=== PATIENT | male | born 1930 | race Caucasian/White ===

== ENCOUNTER → 2017-04-13 | Outpatient (CLI) | payer OTHER, BC | LOC: BHFA 09:15 | PROVIDERS: ATTEND Internal Medicine Cardiovascular Disease | DX: I34.0 Nonrheumatic mitral (valve) insufficiency (principal); I77.810 Thoracic aortic ectasia ==

== ENCOUNTER → 2017-07-23 | Outpatient (CLI) | payer OTHER, BC | LOC: CIMAGING 12:18 | PROVIDERS: ATTEND Internal Medicine | DX: M79.89 Other specified soft tissue disorders (principal) | CPT/HCPCS: 93971-PO ==

== ENCOUNTER 2017-08-03 10:32 | Observation (INO) | payer OTHER, BC ==
--- NOTE | 2017-08-03 10:45 | CPEKG ---
Heart Rate: 80 RR Interval: 750 P-R Interval: 215 QRSD Interval: 134 QT Interval: 404 QTC Interval: 466 P Salem: 65 QRS Salem: -59 T Wave Salem: 86 EKG Severity - ABNORMAL ECG - EKG Impression: SINUS RHYTHM EKG Impression: LEFT BUNDLE BRANCH BLOCK Electronically Signed By: Edward Larkin 04-Aug-2017 15:36:08
[2017-08-03 10:49] LABS: % IMMATURE GRANULYOCYTES 0.4 % (0.0-1.1); ABSOLUTE IMMATURE GRANULOCYTES 0.02 10^3/uL (0.00-0.10); ADD DIFF? NO; ADD MORPH? NO; ADD SCAN? NO; ATYPICAL LYMPHOCYTE FLAG 0 (0-99); FRAGMENT RBC FLAG 0 (0-99); HEMATOCRIT 44.5 % (40.0-51.0); HEMOGLOBIN 15.7 g/dL (13.7-17.5); LEFT SHIFT FLG 0 (0-99); LIPEMIA HEMOLYSIS FLAG 90 (0-99); MEAN CELL HEMOGLOBIN 32.4 pg (27.9-34.1); MEAN CELL HEMOGLOBIN CONCENTR. 35.3 g/dL (32.4-36.7); MEAN CELL VOLUME 91.9 fL (81.5-99.8); MEAN PLATELET VOLUME 8.8 fL (8.7-11.7); PLATELET CLUMPS FLAG 0 (0-99); PLATELET COUNT 189 10^3/uL (150-400); RED BLOOD CELL COUNT 4.84 10^6/uL (4.40-6.38); RED CELL DISTRIBUTION WIDTH 13.6 % (11.5-15.2)
[2017-08-03 11:03] LABS: APTT 25.7 SEC (23.0-38.0); INR 0.96 (0.83-1.16); PROTIME(PATIENT) 12.5 SEC (12.0-15.0)
--- NOTE | 2017-08-03 11:10 | EDPHY ---
H & P Stated Complaint: 1 hr ago c/o rt sided teeth tingling and some speech issues Time Seen by Provider: 08/03/17 10:41 HPI/ROS: This patient is brought in by private vehicle by his after onset of subtle none stroke symptoms at 9:30 a.m. this morning. He explains that while eating he noticed a feeling of slight numbness and paresthesias in his gums on the right side an in his right face. Around the same time he noticed subtle dysarthria feeling like he was having difficulty articulating his words. He reports no aphasia; he had-had no difficulty finding words just difficulty enunciating. His reports that she noted subtle right upper lip droop at the same time. The patient reports persistent subtle feeling dysarthria. He noticed no other focal neuro symptoms and he reports he felt well prior to the onset of symptoms. ROS: No recent fevers or chills. No significant fatigue. No other constitutional symptoms HEENT: No recent URI symptoms. No sore throat or other. No change in hearing. No visual changes. Neuro: No headache. No focal weakness in his arms or legs. No recent head injuries. Pulmonary: No shortness of breath. No cough. Cardiovascular: No chest pain or heart palpitations. No lightheadedness. No lower extremity swelling. GI: No abdominal pain nausea or vomiting. : No symptoms Integumentary: No skin rash Endocrine: No complaints Psychiatric: No acute complaints Complete review of symptoms is otherwise negative. Source: Patient Exam Limitations: No limitations - Personal History Current Tetanus Diphtheria and Acellular Pertussis (TDAP): Yes - Medical/Surgical History PMH: Hypertension Mitral valve regurgitation Known left bundle branch block Dyslipidemia Hx Asthma: No Hx Chronic Respiratory Disease: No Hx Diabetes: No Hx Cardiac Disease: Yes Hx Renal Disease: No Hx Cirrhosis: No Hx Alcoholism: No Hx HIV/AIDS: No Hx Splenectomy or Spleen Trauma: No Other PMH: LAZER TURP 3 WEEKS AGO. HTN. LT HIP. TONSILS - Family History Significant Family History: No pertinent family hx - Social History Smoking Status: Former smoker Alcohol Use: Rarely Drug Use: None Additional Social History: Here with his many years. 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 HEENT: Is no external evidence of trauma on exam. Eyes: Pupils are equal and reactive to light. Extraocular motions are intact. Optic fundi: Clear with no papilledema or hemorrhage. Nose atraumatic. Ears: Clear bilaterally with no hemotympanum. Oropharynx: No dental trauma or malocclusion. No intraoral lacerations. Eyes: Pupils are equal and reactive to light. Extraocular motions are intact. Optic fundi: Clear with no papilledema or hemorrhage. Lungs: Clear to auscultation bilaterally Neck: Supple no meningismus. Cardiac: Regular rate and rhythm with 3/6 holosystolic murmur. No JVD. No carotid bruits are appreciated. No peripheral edema. Abdomen: Soft nontender no organomegaly Neuro: GCS of 15. Cranial nerves II through XII intact with the exception of a slight right upper lip droop when he relaxes. Cerebellar exam is normal as judged by symmetric rapid hand movements bilaterally. No pronator drift. He does seem to have very subtle dysarthria. His initial NIH stroke scale is 2 for lip droop and subtle dysarthria. Visual confrontational testing reveals no visual field deficits. Initial differential diagnosis: Ischemic stroke, hemorrhagic stroke, TIA, metabolic disarray, complex migraine, intracranial lesion Constitutional: Initial Vital Signs Temperature (C) 36.6 C 08/03/17 10:39 Heart Rate 82 08/03/17 10:39 Respiratory Rate 18 08/03/17 10:39 Blood Pressure 171/95 H 08/03/17 10:39 O2 Sat (%) 95 08/03/17 10:39 O2 Delivery Mode Nasal Cannula O2 (L/minute) 2 Allergies/Adverse Reactions: No Known Allergies Allergy (Unverified 01/28/14 09:52) Home Medications: Medication Instructions Recorded Ascorbic Acid [Vitamin C 500 mg 500 mg PO DAILY 02/09/13 (OTC)] Aspirin [Aspirin 81mg (OTC)] 81 mg PO DAILY 02/09/13 Atorvastatin Calcium [Lipitor 10 10 mg PO DAILY 02/09/13 mg (RX)] Calcium Carb W/Vit D [Calcium Carb 500 mg PO DAILY 02/09/13 W/Vit D 500/200 (OTC)] Cholecalciferol (Vitamin D3) 1,000 unit PO .2XWEEK 02/09/13 [Vitamin D-3] Hydrochlorothiazide 25 mg PO DAILY 02/09/13 [Hydrochlorothiazide 25 MG (RX)] Lisinopril [Zestril 20 mg (RX)] 20 mg PO DAILY 02/09/13 Lutein 20 mg PO DAILY 02/09/13 Multivitamins [Tab-A-Sarah] 1 each PO DAILY 02/09/13 [place]-3 Fatty Acids/Fish Oil [Fish 1 each PO DAILY 02/09/13 Oil 1,000 mg Capsule] Pharmacy Completed 02/0902/09/13 Selenium [Selenium 50mcg] 50 mcg PO DAILY 02/09/13 Tamsulosin HCl [Flomax 0.4 MG (RX)] 0.4 mg PO DAILY8 02/09/13 Zinc Gluconate [Zinc Chelated 50mg 25 mg PO DAILY 02/09/13 (OTC)] Medical Decision Making - Diagnostics EKG Interpretation: 12 lead EKG performed shortly after arrival at 10:41 a.m. indication struck symptoms rule out dysrhythmia or other Sinus rhythm at 80 Intervals: P R of 215, QRS of 134, QTC of 466 Strum: P of 65, QRS of-59, T of 86 ST segments: Normal throughout Overall assessment sinus rhythm with left bundle branch block Imaging Results: Imaging Impressions Head CT 08/03/17 10:48 Impression: Nothing acute identified. Final concordant results called to Dr. Vazquez at 11:04 AM. General information for patients regarding this examination can be found at [email or web address] If you have questions or comments about this report, please contact me at (hospital) or [phone] (cell). CT brain without contrast reveals old lacune in the basal ganglia, no evidence of acute hemorrhage and no evidence of acute cortical stroke yet. I reviewed this CT and I spoke with Dr. Rios-radiologist about the official read. I spoke with Dr. Schroeder regarding his CT angio head and neck-some tortuous arterial vessels but no significant stenosis in the carotids or elsewhere and no evidence of thrombosis or dissection. Imaging: Discussed imaging studies w/ crew caller Radiologist ED Course/Re-evaluation: IV, monitor, stroke alert initiated. Patient taken room 1. Contacted [facility] Dr. Chaidez, Nuerologist patched -in via telemedicine and evaluated the patient after my initial stroke eval & consult via phone. Given that the patient's symptoms or so minimal and that he seems to be improving in terms of his subtle dysarthria per his Dr. Streeter I feel that there is a is insufficient benefit to warrant thrombo lytic use in this patient. Patient his for comfortable with this plan. Will treat him with 81 mg of aspirin and proceed with further workup to include CT angio head and neck. He will also warrant MRI with contrast of his brain but there are no acute openings an MRI here at this facility so will proceed for his jobs admission to [facility] to Dr. arauz see me who accepts the patient for transfer to the neuro floor where he will have his MRI of the brain. 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 We ruled out intracranial bleed and no evidence of significant metabolic disarray or other complicating factors at this time. His left bundle branch block is longstanding and not think he is having acute cardiac ischemia. - Data Points Laboratory Results: Laboratory Results 08/03/17 10:45 08/03/17 10:45 08/03/17 08/03/17 08/03/17 10:56 10:45 10:45 WBC RBC Hgb Hct MCV MCH MCHC RDW Plt Count MPV Neut % (Auto) Lymph % (Auto) [place] % (Auto) Eos % (Auto) Baso % (Auto) Nucleat RBC Rel Count Absolute Neuts (auto) Absolute Lymphs (auto) Absolute Monos (auto) Absolute Eos (auto) Absolute Basos (auto) Absolute Nucleated RBC Immature Gran % Immature Gran # PT 12.5 SEC SEC (12.0-15.0) INR 0.96 (0.83-1.16) APTT 25.7 SEC SEC (23.0-38.0) Sodium 144 mEq/L mEq/L (134-144) Potassium 4.4 mEq/L mEq/L (3.5-5.2) Chloride 107 mEq/L mEq/L (97-110) Carbon Dioxide 22 mEq/l mEq/l (22-31) Anion Gap 15 mEq/L mEq/L (8-16) BUN 29 mg/dL H mg/dL (7-23) Creatinine 1.1 mg/dL mg/dL (0.7-1.3) Estimated GFR > 60 Glucose 106 mg/dL H mg/dL (70-100) POC Glucose 92 mg/dL mg/dL (70-100) Calcium 9.6 mg/dL mg/dL (8.5-10.4) Total Bilirubin 0.2 mg/dL mg/dL (0.1-1.4) AST 23 IU/L IU/L (17-59) ALT 36 IU/L IU/L (21-72) Alkaline Phosphatase 63 IU/L IU/L (38-126) Total Protein 6.5 g/dL g/dL (6.3-8.2) Albumin 3.9 g/dL g/dL (3.5-5.0) 08/03/17 10:45 WBC 5.29 10^3/uL 10^3/uL (3.80-9.50) RBC 4.84 10^6/uL 10^6/uL (4.40-6.38) Hgb 15.7 g/dL g/dL (13.7-17.5) Hct 44.5 % % (40.0-51.0) MCV 91.9 fL fL (81.5-99.8) MCH 32.4 pg pg (27.9-34.1) MCHC 35.3 g/dL g/dL (32.4-36.7) RDW 13.6 % % (11.5-15.2) Plt Count 189 10^3/uL 10^3/uL (150-400) MPV 8.8 fL fL (8.7-11.7) Neut % (Auto) 59.7 % % (39.3-74.2) Lymph % (Auto) 24.6 % % (15.0-45.0) [place] % (Auto) 10.2 % % (4.5-13.0) Eos % (Auto) 4.2 % % (0.6-7.6) Baso % (Auto) 0.9 % % (0.3-1.7) Nucleat RBC Rel Count 0.0 % % (0.0-0.2) Absolute Neuts (auto) 3.16 10^3/uL 10^3/uL (1.70-6.50) Absolute Lymphs (auto) 1.30 10^3/uL 10^3/uL (1.00-3.00) Absolute Monos (auto) 0.54 10^3/uL 10^3/uL (0.30-0.80) Absolute Eos (auto) 0.22 10^3/uL 10^3/uL (0.03-0.40) Absolute Basos (auto) 0.05 10^3/uL 10^3/uL (0.02-0.10) Absolute Nucleated RBC 0.00 10^3/uL 10^3/uL (0-0.01) Immature Gran % 0.4 % % (0.0-1.1) Immature Gran # 0.02 10^3/uL 10^3/uL (0.00-0.10) PT INR APTT Sodium Potassium Chloride Carbon Dioxide Anion Gap BUN Creatinine Estimated GFR Glucose POC Glucose Calcium Total Bilirubin AST ALT Alkaline Phosphatase Total Protein Albumin Point of Care Test Results: 08/03/17 10:56 POC Glucose 92 Departure - Departure Disposition: [facility] Inpatient Acute Clinical Impression: Stroke Qualifiers: CVA mechanism: unspecified Qualified Code(s): I63.9 - Cerebral infarction, unspecified Condition: Fair
[2017-08-03 11:16] LABS: ALANINE AMINOTRANSFERASE 36 IU/L (21-72); ALBUMIN 3.9 g/dL (3.5-5.0); ALKALINE PHOSPHATASE 63 IU/L (38-126); ANION GAP 15 mEq/L (8-16); ASPARTATE AMINOTRANSFERASE 23 IU/L (17-59); BILIRUBIN,TOTAL 0.2 mg/dL (0.1-1.4); CALCIUM 9.6 mg/dL (8.5-10.4); CARBON DIOXIDE 22 mEq/l (22-31); CHLORIDE 107 mEq/L (97-110); CREATININE 1.1 mg/dL (0.7-1.3); GLOMERULAR FILTRATION RATE > 60; GLUCOSE 106 mg/dL (70-100); POTASSIUM 4.4 mEq/L (3.5-5.2); SODIUM 144 mEq/L (134-144); TOTAL PROTEIN 6.5 g/dL (6.3-8.2)
[2017-08-03] MEDS ORDERED: ACETAMINOPHEN 325 MG TAB PO PRN (11:16)
[2017-08-03] MEDS ORDERED: ONDANSETRON 4 MG/2 ML VIAL IVP PRN (11:16)
[2017-08-03] MEDS ORDERED: ONDANSETRON DISINTEGRATING 4 MG TAB PO PRN (11:16)
[2017-08-03] MEDS ORDERED: IOPAMIDOL (ISOVUE 370) 100 ML BTL IV ONE (11:17)
--- NOTE | 2017-08-03 11:20 | PDCONSULT ---
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 These symptoms started at 9:30 am today. His notices a slight facial droop on the right as well. [facility]-- Past Medical History: Hypertension Medications: on antihypertensive, no antithrombotic therapy Exam Vitals: vital signs reviewed Mental Status: awake, alert + oriented x 3, follows commands Language: normal speech, no aphasia, no dysarthria Cranial Nerves extra ocular movements intact, normal facial sensation, facial droop right, alternating exotropia Motor: normal strength, normal bulk, no drift Sensory: decreased sensation right face Cerebellar: normal cerebellar NIHSS Time (): 08/03/2017 11:03 LOC 1a: 0 = Alert; keenly responsive LOC 1b: 0 = Answers both questions correctly LOC Commands: 0 = Performs both tasks correctly Best Gaze: 0 = Normal Visual: 0 = No visual loss Facial Palsy 1 = Minor paralysis (flattened nasolabial fold, asymmetry on smiling) Motor Arm L: 0 = No drift; limb holds 90 (or 45) degrees for full 10 seconds Motor Arm R: 0 = No drift; limb holds 90 (or 45) degrees for full 10 seconds Motor Leg L: 0 = No drift; leg holds 30-degree position for full 5 seconds Motor Leg R: 0 = No drift; leg holds 30-degree position for full 5 seconds Limb Ataxia 0 = Absent Sensory: 1 = Iplf-ni-ryeyzkdt sensory loss; patient feels pinprick is less sharp or is dull on the affected side, but patient is aware of being touched Best Language: 0 = No aphasia; normal Dysarthria: 0 = Normal Extinction + Inattention: 0 = No abnormality NIHSS: [address]: no bleed, old lacunar strokes noted. Assessment: Acute Ischemic Stroke, likely small vessel acute stroke. Symptoms are very mild and non-disabling at present - would not recommend tPA. Plan Lytic/Intervention: NOT IV or IA candidate Labs HgbA1c, Lipid Panel Imaging CTA Head and Neck, MRI brain without Diagnostic test echocardiogram without bubble Therapy/Eval PT/OT, Speech/Swallow therapy consult Medication aspirin 81mg per day VTE Prophylaxis SCD Other permissive HTN, telemetry monitoring, I have discussed my recommendations with the referring provider Disposition admit
[2017-08-03] MEDS ORDERED: NS 1,000 ML IV ONE (14:13)
[2017-08-03] MEDS ORDERED: ENOXAPARIN 40 MG/0.4 ML SYR SC SCH ×2 (14:32→21:00)
--- NOTE | 2017-08-03 14:41 | GHP ---
[f rep st] HISTORY AND PHYSICAL DATE OF ADMISSION: 08/03/2017 CHIEF COMPLAINT: Facial droop and word-finding difficulties. HISTORY OF PRESENT ILLNESS: An 87-year-old male, with a history of hypertension and hyperlipidemia, who presents the morning of presentation noticing an unusual sensation in his right teeth after he fi nished eating breakfast. He was then noted by his to have an asymmetric, right-sided facial alexandra op and therefore presented to the emergency department. The patient noted while en route to the ED, and in the ED, that the patient was having some difficulty with the clarity of his thought and findin g words, although no specific dysarthria. The patient denied any peripheral weakness, numbness, ting ling, difficulty ambulating. Was evaluated in the emergency department by telemedicine and, by the t cristiana I am evaluating him on , has near-complete resolution of his symptoms. He was felt to be so slight in his presentation that no tPA was provided. Again, on my evaluation, there is no dissymm etry in his smile or facial mechanics. The patient has no numbness, no tingling, and is quite fluent in his speech. The patient actively denies any limitations in his activity prior to presentation. Denies palpitation, shortness of breath, chest pain, headaches, vision changes. Denies any diarrhea, nausea, vomiting, dysuria, hematuria. Has had chronic, asymmetric, right-sided, lower extremity jocelyn ma for which he has had recent ultrasound, which has ruled out DVT. This is been unchanged and does improve in the evenings after elevating his feet. PAST MEDICAL HISTORY: 1. Hypertension. 2. Hyperlipidemia, untreated. 3. BPH. 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 5. Chronic right lower extremity edema. 6. Recent diagnosis of mitral regurgitation, followed by Cardiology. SOCIAL HISTORY: Negative for active tobacco. Has a 20-year history of smoking but quit over 40 year s ago. Drinks red wine in the evenings. Denies any illicit drugs or marijuana. FAMILY HISTORY: Positive for hypertension. REVIEW OF SYSTEMS: A 10-point review of systems is negative, with the exception of that reported in the HPI. PHYSICAL EXAMINATION: VITAL SIGNS: Blood pressure is 155/90, heart rate 75, respiratory rate 16, 95 % on room air, 36.6. GENERAL: This is a very pleasant, elderly male in no acute distress. HEENT: Notable for moist mucous membranes. CARDIAC: Patient is regular rate and rhythm. A systolic murmur is appreciated. PULMONARY: Clear to auscultation bilaterally. GASTROINTESTINAL: Positive bowel s ounds. ABDOMEN: Soft and nontender in all 4 quadrants. MUSCULOSKELETAL: There is slight trace low er extremity edema. NEUROLOGIC: The patient's cranial nerves 2-12 are intact. Sensation is intact throughout. Strength is intact throughout. Speech fluidity is normal. Patient does not have any wo rd-finding difficulties. PSYCHIATRIC: He is very pleasant and cooperative on interview and examinat ion. LABORATORY DATA: White count 5.2, hematocrit 44.5, platelets of 189, creatinine of 1.1, glucose 106. A noncontrast CT of the head, which I personally reviewed and interpreted, shows no acute strokes o r bleeds. ASSESSMENT AND PLAN: This is an 87-year-old male, presenting with facial droop. 1. Transient ischemic attack. Patient has had resolution of his symptoms entirely by the time of my evaluation. Initial imaging is negative. Patient will be admitted to the hospital for neurologic i maging. Computed tomography angiography of the head and neck will be obtained, as well as brain MRI and echocardiogram with bubble. The patient will be seen by Neurology and recommendations made. I h ave initiated aspirin 81 mg today. Suspect this will continue at disposition. 2. Hypertension. Patient's blood pressure is appropriately controlled for his age. Will continue h is outpatient regimen without change at this time. 3. Hyperlipidemia. Patient reports that he has not opted to continue medications for this. We will check his lipids and can have an informed discussion with him tomorrow about the need for lipid inte rvention. 4. Benign prostatic hypertrophy. Will continue patient's tamsulosin while watching his vital signs in the hospital. 5. Asymmetric right lower extremity edema. Patient has had a recent ultrasound, which was negative. I would not initiate additional workup at this time. Prophylaxis with Lovenox. DIET: Cardiac when cleared by speech therapy. DISPOSITION: I expect in less than 2 midnights, as the patient's evaluation neurologically is uncomp licated. I have discussed the case with the emergency room physician. Patient will be triaged to [facility] medical-surgical floor for care. /[id number]/MODL
[2017-08-03] MEDS: ASPIRIN 81 MG CHEWABLE TAB PO SCH (15:36)
--- NOTE | 2017-08-03 15:51 | GCON ---
[f rep st] CONSULTATION NEUROLOGY CONSULTATION REFERRING PHYSICIAN: Carolina Plunkett MD CHIEF COMPLAINT: Question stroke. 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 He has hypertension in the background, and is on medication for his bladder and prostate. Otherwise, he does not take any daily antithrombotic medication. He has no vascular history. He has a mitral valve abnormality being monitored by Cardiology. This morning around 9:30 a.m., he had acute onset of paresthesias or feeling like he had Jell-O in his right teeth, both upper and lower teeth. He felt like his speech may have been slightly slurred, but his states it was very subtle and difficult to detect. They also thought he may have had some slight drooping of the corner of his right mouth during this time. All of these symptoms lasted around 2 or 3 hours and resolved. There were no symptoms in his right arm or right leg. He had no symbolic dysfunction to suggest aphasia. Specifically, there were no problems with comprehension or finding the words he wanted to say, and based on his history, articulated them fairly well during the symptomatic period. He came to the emergency department at [facility] and was evaluated by Dr. Rashad Chaidez from [facility], and Dr. Clifton Vazquez. I reviewed the consultation by Dr. Chaidez, who felt the patient may have had a tiny lacunar infarction, but did not recommend tPA based on mild and non-disabling symptoms at presentation. He was started on aspirin and admitted for further evaluation. He has had an echocardiogram with bubble study, the results of which are pending. The patient had a head CT which showed nothing acute. He had CTA of the head and neck. The angiogram of the brain showed a tortuous posterior circulation without any stroke source identified. CTA of the neck showed torturous bilateral carotids without flow-limiting stenosis, thrombus, embolism or dissection. He is now at [facility] and asymptomatic. PAST MEDICAL HISTORY: 1. Hypertension. 2. BPH. 3. Mitral regurgitation. 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 Has red wine occasionally in the evenings. FAMILY HISTORY: His father had coronary disease and there is a family history of hypertension. REVIEW OF SYSTEMS: A 10-point review of systems was negative, only pertinent to the HPI. PHYSICAL EXAM: VITAL SIGNS: His blood pressure is 146/85, respirations 18, temperature 36.6. GENERAL: No acute distress. Very pleasant. HIGHER MENTAL FUNCTION: He is awake and alert. He is lucid. He named 5/5, follows commands 5/5, and repeats 5/5, no aphasia. CRANIAL NERVES: Normal 2 through 7, 11, and 12. MOTOR: He had no drift. No focal weakness. Tone is normal throughout. SENSORY: He had normal light touch in all extremities. No extinction. COORDINATION: Normal in upper and lower extremities. seventy minutes floor time reviewing records and in direct counseling with patient. IMPRESSION AND PLAN: 1. Query left hemisphere stroke. 2. Mitral valve regurgitation His clinical history may be suggestive of a very small lacunar-type infarction in his left hemisphere subcortical white matter. He should start aspirin and statin therapy. We will follow up on the MRI brain which has been already ordered. We will also review his echocardiography findings. He is monitored by Dr. Harding as an outpatient regarding his mitral valve abnormality. He denies that he had any chest pain, shortness of breath or diaphoresis with this episode to suggest an acute coronary syndrome. I did discuss this possibility with Dr. Plunkett, as well. Overall, though, his symptoms would best fit with an acute neurovascular syndrome. We will follow up on the above and make further recommendations accordingly. Thank you for this consultation. /[id number]/MODL MTDD
--- NOTE | 2017-08-03 16:06 | ECHO ---
[email or web address] [address] [address] Main: [phone] Fax: Transthoracic Echocardiogram Name: GABE MACKEY MR#: [id number] Study Date: 08/03/2017 Study Time: 02:17 PM Date of : 1930 Age: 87 year(s) Height: 167.6 cm (66 in.) Weight: 76.2 kg (168 lb.) BSA: 1.86 m2 Gender: Male Examination: Echo Indication: Ischemic stroke/hx of MR Image Quality: Contrast: Requested by: Carolina Plunkett BP: 155 mmHg/90 mmHg Heart Rate: Rhythm: Indication: Ischemic stroke/hx of MR Procedure Staff Sound Truck Operator: Pau Gamez Reading Physician: Bryson Hinojosa Requesting Provider: Conclusions: Normal size left ventricle. Normal global systolic LV function. The ejection fraction is estimated to be 60-65 %. No regional wall motion abnormality. The left atrium is mildly dilated. An agitated saline study was performed and was negative for intracardiac shunting. Severe mitral valve regurgitation is present. The mitral regurgitation is eccentric and anteriorly directed. . . There is mild thickening of the aortic cusps. Trivial aortic valve regurgitation. 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 No change compared to 04/13/2017. Measurements: Chambers Valvular Assessment AV/MV Valvular Assessment TV/PV Normal Normal Normal Name Value Range Name Value Range Name Value Range IVSd (2D): 0.8 cm (0.6 cm-1.1 AV meanP mmHg ( - ) cm) RODRIGO (VTI): 2.9 cm ( - ) LVDd (2D): 5.2 cm (4.2 cm-5.9 MV meanP mmHg ( - ) cm) MVA (Vmax): 2.2 m/s ( - ) LVDs (2D): 3.3 cm (2.1 cm-4 cm) LVPWd (2D): 0.8 cm (0.6 cm-1 cm) LVOTd 2.2 cm 2.2 cm mm LVEF (MOD4): 65 % (>=55 %) EF Range: 60-65 % Continued Measurements: Patient: GABE MACKEY Study Date: 08/03/2017 Page 1 of 2 02:17 PM Chambers Valvular Assessment AV/MV Name Value Name Value LADs Lon.7 cm MV Annulus: 3.2 cm LA Area: 22.2 cm2 MV VTI: 34.30 cm MR Vena Contracta: 0.3 cm MR ERO: 0.210 cm2 MR PISA radius: 7 mm MR Reg. Volume: 38 ml MR Reg. Fraction: 14 % Additional Vessels Name Value Ao Ascendin.3 cm Findings: Left Ventricle: Normal size left ventricle. Normal global systolic LV function. The ejection fraction is estimated to be 60-65 %. No regional wall motion abnormality. Right Ventricle: Normal size right ventricle. Left Atrium: The left atrium is mildly dilated. An agitated saline study was performed and was negative for intracardiac shunting. Right Atrium: The right atrium is normal in size. Mitral Valve: Severe mitral valve regurgitation is present. The mitral regurgitation is eccentric and anteriorly directed. . . Aortic Valve: The aortic valve is tri-leaflet. There is mild thickening of the aortic cusps. Trivial aortic valve regurgitation. Pulmonic Valve: The pulmonic valve is normal in appearance. Trivial pulmonic valve regurgitation. 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 Pericardium: No pericardial effusion. (No Signature Object) Patient: GABE AMCKEY Study Date: 08/03/2017 Page 2 of 2 02:17 PM [id number]
[2017-08-03 16:25] LABS: TROPONIN I 0.073 ng/mL (0.000-0.034)
[2017-08-03 17:43] LABS: HEMOGLOBIN A1C 5.5 % (4.0-6.0)
[2017-08-03] MEDS ORDERED: RED WINE 120 ML BOTTLE PO SCH (18:00)
[2017-08-03] MEDS ORDERED: TAMSULOSIN HCL 0.4 MG CAP PO SCH (21:00)
[2017-08-03 23:57] VITALS: O2SAT 94
[2017-08-04 05:53] LABS: CHOLESTEROL 202 mg/dL (140-220); CHOLESTEROL/HDL RATIO 4.93 RATIO (1.00-4.97); HIGH DENSITY LIPOPROTEIN 41 mg/dL (40-65); LDL/HDL RATIO 3.63 RATIO (1.00-3.64); LOW DENSITY LIPOPROTEIN 149 mg/dL (80-100); NON-HIGH DENSITY LIPOPROTEIN 161 mg/dL (90-129); TRIGLYCERIDE 64 mg/dL (40-150); VERY LOW DENSITY LIPOPROTEINS 12 mg/dL (8-25)
[2017-08-04 07:42] VITALS: BP 156/90; PULSE 76; RESP 24; TEMP 97.4
[2017-08-04] MEDS: ASPIRIN 81 MG CHEWABLE TAB PO SCH (08:47)
[2017-08-04] MEDS ORDERED: LISINOPRIL 40 MG TAB PO SCH (09:00)
--- NOTE | 2017-08-04 10:03 | NEUROPROG ---
Assessment: 1. Small left high parietal infarct The patient's symptoms have completely resolved. MRI confirms on diffusion- weighted imaging a acute small infarct in the high left parietal white matter likely in the face homunculus region. The patient's echo showed his significant mitral regurgitation with a little bit of left atrial dilation. He has had no atrial fibrillation on ECG monitoring/telemetry while here in the hospital. He has no past medical history of atrial fibrillation. We discussed options at length and decided together on the following plan: 1. He will discharge home today on aspirin and statin daily. 2. He will follow up with his primary linotype machinist apprentice, Dr. Harding, in the next 1 or 2 weeks to discuss rhythm monitoring to screen for paroxysmal atrial fibrillation. the patient would like to discuss with his linotype machinist apprentice regarding a 30 day event monitor verses a implantable loop recorder. 3. He will follow-up with me in 4 weeks to review the above. 4. He will return to the emergency department for any acute neurologic symptoms. 35 total minutes floor time- which included reviewing imaging, test results and in direct counseling with the patient. Subjective: Symptoms have resolved Objective: Vital Signs Temp Pulse Resp BP Pulse Ox 36.3 C 76 24 H 156/90 H 94 08/04/17 07:41 08/04/17 07:41 08/04/17 07:41 08/04/17 08:47 08/04/17 07:41 08/03/17 08/04/17 08/05/17 05:59 05:59 05:59 Intake Total 1350 Balance 1350 PT 12.5 SEC (12.0-15.0) 08/03/17 10:45 INR 0.96 (0.83-1.16) 08/03/17 10:45 Exam is normal NIHSS = 0 Allergies/Adverse Reactions: No Known Allergies Allergy (Unverified 01/28/14 09:52)
--- NOTE | 2017-08-04 12:27 | ASDISCHSUM ---
Discharge Information Plan Status:Home with No Needs Medically Cleared to Leave: Discharge Date:08/04/2017 12:08 PM CM D/C Disposition:Home, Routine, Self-Care ADT D/C Disposition:Home, Routine, Self-Care Projected Discharge Date:08/04/2017 12:08 PM Transportation at D/C: Discharge Delay Reason: Follow-Up Date:08/04/2017 12:08 PM Discharge Slot: Final Diagnosis: Placement Information Patient Contact Information Contact Name:RAKAN Relationship: Address:[address] [address] Work Phone: City:[place] Alternate Phone: [facility]/Zip Code:[place] [address] Email: Financial Information Financial Class:[facility] Primary Plan Desc:MEDICARE OUTPATIENT Primary Plan Number:[id number] Secondary Plan Desc:BC OUT OF STATE PP Secondary Plan Number:[id number] Assessment Information Intervention Information
[2017-08-06] MEDS ORDERED: OMEGA-3 FATTY ACIDS 1,000 MG CAP PO SCH (08:00)
== END 2017-08-04 12:08 | disposition home or self-care (01) ==
LOC: CED 10:32 → CEDHOLD 11:16 → F3N 12:42
PROVIDERS: ADMIT Hospitalist; ATTEND Hospitalist
DX: I63.9 Cerebral infarction, unspecified (principal); Z87.891 Personal history of nicotine dependence; R20.2 Paresthesia of skin; R47.1 Dysarthria and anarthria
CPT/HCPCS: 70450; 70496; 70498; 70551; 92610; 93005; 93306; 97161; G0378; G8978; G8979; G8980; G8996; G8997; G8998; Q9967; 80053-PO; 82947-QW; 85025-PO; 85610-PO; 85730-PO; J1650

== ENCOUNTER → 2018-01-19 | Outpatient (CLI) | payer OTHER, BC | LOC: SBRMNEURO 20:00 | PROVIDERS: ATTEND Internal Medicine Pulmonary Disease | DX: G47.31 Primary central sleep apnea (principal); G47.33 Obstructive sleep apnea (adult) (pediatric) ==